=== PATIENT | female | born 1965 | race Caucasian/White ===

== ENCOUNTER 2017-10-20 09:08 | Emergency (ER) | payer MEDICAID ==
[~2017-10-20] VITALS: Ht 167.6 cm; Wt 61.2 kg
[2017-10-20 09:19] VITALS: Ht 167.6 cm; Wt 61.2 kg
[2017-10-20 11:09] VITALS: BP 127/82
== END 2017-10-20 11:09 | disposition home or self-care (01) ==
LOC: ED 09:08
DX: N89.8 Other specified noninflammatory disorders of vagina (principal)